=== PATIENT | female | born 1985 | race Caucasian/White ===

== ENCOUNTER 2018-04-01 01:09 | Inpatient (IN) | payer BC ==
[2018-04-01] MEDS: ONDANSETRON 4 MG INJ IV (02:31)
[2018-04-01] MEDS: HYDROmorphONE 1 MG/ML SYG IV (02:31)
[2018-04-01] MEDS: VANCOMYCIN 1 GM (PMX) 250 ML IVPB (02:31)
[2018-04-01 03:24] LABS: ADD MAN DIFF? NO
[2018-04-01 03:25] LABS: BASOPHIL # 0.1 10^3/ul (0.0-0.1); BASOPHILS % 0.3 % (0.0-2.0); EOSINOPHILS % 0.1 % (0.0-7.0); HEMATOCRIT 34.7 % (37.0-47.0); HEMOGLOBIN 10.7 g/dl (12.0-16.0); LYMPHOCYTES # 2.1 10^3/ul (0.8-2.9); LYMPHOCYTES % 11.7 % (15.0-51.0); MEAN CORPUSCULAR HEMOGLOBIN 26.4 pg (29.0-33.0); MEAN CORPUSCULAR HGB CONC 30.8 g/dl (32.0-37.0); MEAN CORPUSCULAR VOLUME 85.7 fl (82.0-101.0); MONOCYTE # 0.9 10^3/ul (0.3-0.9); MONOCYTES % 5.1 % (0.0-11.0); NEUTROPHILS % 82.4 % (39.0-77.0); PLATELET COUNT 363 10^3/UL (140-415); RED BLOOD COUNT 4.05 10^6/ul (4.20-5.40); RED CELL DISTRIBUTION WIDTH 14.2 % (11.5-14.5)
[2018-04-01 03:25] LABS: WHITE BLOOD COUNT 18.1 10^3/ul (4.8-10.8)
[2018-04-01 03:44] LABS: ALANINE AMINOTRANSFERASE 27 IU/L (13-69); ALBUMIN 3.6 g/dl (3.3-4.9); ALBUMIN/GLOBULIN RATIO 1.09; ALKALINE PHOSPHATASE 91 IU/L (42-121); ANION GAP 10 (8-16); ASPARTATE AMINO TRANSFERASE 16 IU/L (15-46); BILIRUBIN,INDIRECT 0.6 mg/dl (0-1.1); BILIRUBIN,TOTAL 0.6 mg/dl (0.2-1.3); BLOOD UREA NITROGEN 8 mg/dl (7-20); CALCIUM 7.8 mg/dl (8.4-10.2); CARBON DIOXIDE 26 mmol/L (21-31); CHLORIDE 106 mmol/L (97-110); GLUCOSE 134 mg/dl (70-220); POTASSIUM 3.8 mmol/L (3.5-5.1); SODIUM 138 mmol/L (135-144); TOTAL PROTEIN 6.9 g/dl (6.1-8.1)
[2018-04-01] MEDS: SOD CHLORIDE 0.9% 1,000 ML IV ×2 (04:48→07:50)
[2018-04-01] MEDS ORDERED: ONDANSETRON 4 MG INJ IV ×2 (05:00→05:30)
[2018-04-01] MEDS ORDERED: ACETAMINOPHEN 325 MG TAB PO (05:00)
[2018-04-01] MEDS ORDERED: VANCOMYCIN IV PER PHARMACY XX (05:30)
[2018-04-01] MEDS ORDERED: NACL 0.9% 3 ML SYG IV (05:30)
[2018-04-01] MEDS: PANTOPRAZOLE 40 MG INJ IV (07:50)
[2018-04-01] MEDS: PIPER-TAZO 3.375 GM IV (PMX) 100 ML IVPB ×4 (07:50→20:32)
[2018-04-01] MEDS: HYDROmorphONE 0.5 MG/0.5 ML SYG IV ×3 (08:39→23:26)
[2018-04-01] MEDS: VANCOMYCIN 1 GM 250 ML IVPB ×2 (09:44→18:02)
[2018-04-01] MEDS: DEXAMETHASONE 10 MG/ML 1 ML INJ IV (10:35)
[2018-04-02] MEDS: PIPER-TAZO 3.375 GM IV (PMX) 100 ML IVPB ×4 (01:20→23:14)
[2018-04-02 02:31] LABS: VANCOMYCIN,TROUGH 5.8 ug/ml (10.0-20.0)
[2018-04-02] MEDS: VANCOMYCIN 1 GM 250 ML IVPB (02:45)
[2018-04-02] MEDS: HYDROmorphONE 0.5 MG/0.5 ML SYG IV ×4 (04:45→21:05)
[2018-04-02 06:05] LABS: ADD MAN DIFF? NO
[2018-04-02 06:14] LABS: BASOPHILS % 0.2 % (0.0-2.0); HEMATOCRIT 31.9 % (37.0-47.0); HEMOGLOBIN 10.2 g/dl (12.0-16.0); LYMPHOCYTES # 2.4 10^3/ul (0.8-2.9); LYMPHOCYTES % 12.7 % (15.0-51.0); MEAN CORPUSCULAR HEMOGLOBIN 27.3 pg (29.0-33.0); MEAN CORPUSCULAR VOLUME 85.3 fl (82.0-101.0); MEAN PLATELET VOLUME 9.9 fl (7.4-10.4); MONOCYTE # 1.1 10^3/ul (0.3-0.9); NEUTROPHIL # 15.1 10^3/ul (1.6-7.5); NEUTROPHILS % 80.5 % (39.0-77.0); PLATELET COUNT 368 10^3/UL (140-415); RED BLOOD COUNT 3.74 10^6/ul (4.20-5.40); RED CELL DISTRIBUTION WIDTH 14.2 % (11.5-14.5)
[2018-04-02 06:14] LABS: WHITE BLOOD COUNT 18.8 10^3/ul (4.8-10.8)
[2018-04-02] MEDS: PANTOPRAZOLE 40 MG INJ IV (06:19)
[2018-04-02 06:59] LABS: ALANINE AMINOTRANSFERASE 22 IU/L (13-69); ALBUMIN 3.2 g/dl (3.3-4.9); ALBUMIN/GLOBULIN RATIO 1.06; ALKALINE PHOSPHATASE 78 IU/L (42-121); ANION GAP 9 (8-16); ASPARTATE AMINO TRANSFERASE 13 IU/L (15-46); BILIRUBIN,INDIRECT 0.2 mg/dl (0-1.1); BILIRUBIN,TOTAL 0.2 mg/dl (0.2-1.3); BLOOD UREA NITROGEN 12 mg/dl (7-20); CALCIUM 8.5 mg/dl (8.4-10.2); CARBON DIOXIDE 27 mmol/L (21-31); CHLORIDE 108 mmol/L (97-110); CHOL/HDL RATIO 2.6 RATIO; CHOLESTEROL 144 mg/dl (100-200); CREATININE 0.59 mg/dl (0.44-1.00); GLUCOSE 125 mg/dl (70-220); HDL CHOLESTEROL 55 mg/dl (34-82); LDL CHOLESTEROL,CALCULATED 74 mg/dl; MAGNESIUM 2.1 mg/dl (1.7-2.5); POTASSIUM 4.3 mmol/L (3.5-5.1); SODIUM 140 mmol/L (135-144); TOTAL PROTEIN 6.2 g/dl (6.1-8.1); TRIGLYCERIDES 75 mg/dl (0-149)
[2018-04-02 07:16] LABS: THYROID STIMULATING HORMONE 0.832 MIU/L (0.465-4.680)
[2018-04-02 08:02] LABS: HEMOGLOBIN A1C 6.1 % (0-5.9)
[2018-04-02] MEDS: VANCOMYCIN 1.5 GM in SOD CHLORIDE 0.9% 250 ML IVPB ×2 (08:28→16:39)
[2018-04-02] MEDS: LIDOCAINE 1% (MDV) 10 ML INJ INFIL (16:51)
[2018-04-03] MEDS: PIPER-TAZO 3.375 GM IV (PMX) 100 ML IVPB ×3 (00:43→12:00)
[2018-04-03] MEDS: VANCOMYCIN 1.5 GM in SOD CHLORIDE 0.9% 250 ML IVPB ×2 (01:16→09:49)
[2018-04-03] MEDS: PANTOPRAZOLE 40 MG INJ IV (05:45)
== END 2018-04-03 14:40 | disposition home or self-care (01) | DRG 603 ==
LOC: E/R 01:09 → MS2 04:49
PROC: 0H91X0Z Drainage of Face Skin with Drainage Device, External Approach (ICD-10-PCS; principal; 2018-04-02)
DX: L03.211 Cellulitis of face (principal); L02.01 Cutaneous abscess of face; E66.9 Obesity, unspecified; Z68.39 Body mass index [BMI] 39.0-39.9, adult
CPT/HCPCS: 36415; 70543; 80053; 80061; 80202; 83036; 83735; 84443; 85025; 96374; 96375; 99285-25